=== PATIENT | female | born 1995 | race Caucasian/White ===

== ENCOUNTER 2019-09-13 18:50 | Emergency (ER) | payer MEDICAID ==
[~2019-09-13] VITALS: Ht 167.6 cm; Wt 73.0 kg
[2019-09-13 19:02] VITALS: Ht 167.6 cm; Wt 73.0 kg
[2019-09-13 20:22] VITALS: BP 106/71
== END 2019-09-13 20:22 | disposition home or self-care (01) ==
LOC: ED 18:50
DX: K02.9 Dental caries, unspecified (principal)
CPT/HCPCS: J2270